=== PATIENT | female | born 1930 | race Caucasian/White ===

== ENCOUNTER → 2018-04-21 14:27 | Outpatient (CLI) | payer OTHER | END | disposition home or self-care (01) | LOC: D.CT 14:27 | DX: R10.11 Right upper quadrant pain (principal); R51 Headache ==

== ENCOUNTER → 2018-08-11 11:56 | Outpatient (CLI) | payer OTHER ==
[2018-08-15 14:07] LABS: FUNGAL - ASP FLAVUS Negative (Neg:<1:1); FUNGAL - ASP NIGER Negative (Neg:<1:1); FUNGAL - ASPER FUMIGATUS Negative (Neg:<1:1)
== END | disposition home or self-care (01) ==
LOC: D.LABREF 11:56
PROVIDERS: ATTEND Internal Medicine Pulmonary Disease
DX: R91.8 Other nonspecific abnormal finding of lung field (principal)